=== PATIENT | female | born 1980 | race Caucasian/White ===

== ENCOUNTER → 2018-04-10 | Outpatient (CLI) | payer OTHER | LOC: BRMIMAGING 08:09 | PROVIDERS: ATTEND Family Medicine | DX: Z12.31 Encounter for screening mammogram for malignant neoplasm of breast (principal) ==

== ENCOUNTER → 2018-04-22 | Outpatient (CLI) | payer OTHER | LOC: BRMIMAGING 08:42 | PROVIDERS: ATTEND Family Medicine | DX: R92.8 Other abnormal and inconclusive findings on diagnostic imaging of breast (principal) ==